=== PATIENT | female | born 1955 ===

== ENCOUNTER → 2024-12-29 | Day surgery (SDC) | payer OTHER ==
[~2024-12-29] MED LIST: ADULT LOW DOSE81 M1; BUPIVACAINE HCL/Mpf 0.5% 10ML VIAL ONE; CEFTRIAXONE SODIUM 2,000 MG VIAL ONE; DIBUCAINE 30 GM TUBE ONE; EZETIMIBE; HEMOSTATIC MATRIX 1 KIT KIT TOP ONE; IBANDRONATE SO150 MG; LIDOCAINE HCL 1% 20 ML VIAL IJ ONE; LIPITOR; METFORMIN HCL500 M3; METRONIDAZOLE/SODIUM CHLORIDE 500 MG/100 ML PIGGYBACK IV ONE; OMEGA 3; OXYCODONE HCL5 MG PO; PANTOPRAZOLE SO40 M2; POVIDONE-IODINE 118 ML BOTT TOP ONE; SYNTHROID75 MCG; TAMSULOSIN HCL 0.4 MG CAP PO ONE; VASOTEC20 M1; XARELTO; [UNRECOGNIZED DRUG - OTHER]
== END | disposition home or self-care (01) ==
LOC: ADM 12-22 11:45 → CIR.AMB 09:35
PROVIDERS: ATTEND Surgery
DX: D12.9 Benign neoplasm of anus and anal canal (principal); K64.4 Residual hemorrhoidal skin tags; K64.8 Other hemorrhoids; K62.89 Other specified diseases of anus and rectum